=== PATIENT | female | born 1950 | race Caucasian/White ===

== ENCOUNTER 2022-03-22 09:01 | Outpatient (CLI) | payer OTHER, SELFPAY ==
--- OUTSIDE RECORDS SUMMARY | 2022-03-22 09:05 | XMS_ITS | Clinical Summary ---
:1950 Author Organization [employer] [facility] [place] [address] Care Team Providers Name Role Phone Wilmer Duval MD Primary Care Provider Allergies No known active allergies Medications Medication Sig Dispensed Refills Start Date End Date Status potassium 1 tablet 5 75 tablet. 3 07/12/2021 Active chloride days per (KLOR-CON M20) 20 week. mEq Extended-Release tabletIndications : Localized edema furosemide TAKE 1 TABLET 60 Tablet 11 07/30/2021 Acti ve (LASIX) 20 mg BY MOUTH tabletIndications TWICE DAILY : Edema, unspecified type celecoxib Take 1 60 Capsule 0 03/07/2022 Active (CELEBREX) 200 mg Capsule (200 capsuleIndication mg) by mouth s: Hip pain, left 2 times daily if needed for Pain. celecoxib Take 1 30 Capsule 1 02/09/2022 Disconti nued (CELEBREX) 200 mg Capsule (200 2 (Reorder capsuleIndication mg) by mouth (E-cancel not s: Hip pain, left 2 times daily sent)) if needed for Pain. As needed. Active Problems Problem Noted Date Edema of both legs 10/24/2012 Overview: Chronically worse on right leg. Resolved Problems Problem Noted Date Resolved Date Venous stasis ulcer of right lower leg with edema of right 0 12/06/2019 02/14/2022 lower leg Encounters Date Type Specialty Care Team Description 03/22/2022 Travel 03/18/2022 Travel 03/11/2022 Telephone Wilmer Duval Prior Authori deena Clifton MD (celecoxib (OBINNA EBREX) 200 mg capsule Appr steven 02/09/22-) 03/07/2022 Refill Wilmer Duval Refill Reques t (Celecoxib) MD Etienne 02/21/2022 Telephone Arvind Tomlinson Appointment MD Wilmer 02/14/2022 Office Visit Wilmer Duval Leg Pain/prob bernard (Left leg MD Etienne pain, groin are a x a couple of weeks .); Knee Pain/problem (F rom walking funny with left leg is having some kne e pain also.) 02/14/2022 Travel 02/11/2022 Travel 01/31/2022 Ancillary Procedure 01/31/2022 Office Visit Wilmer Duval Leg Pain/prob bernard (Left leg MD Etienne and hip pain x a couple of weeks.) 01/31/2022 Travel 01/28/2022 Travel 12/30/2021 Orders Only Lab, Crlb Lab from Last 3 Months Immunizations Name Administration Dates Next Due Influenza, IIV3 (Age >=3 years) 02/28/2012 Tdap 11/01/2007 Family History Medical History Relation Name Comments Hypertension Brother Blood Disease Father Hypertension Father Relation Name Status Comments Brother Father Mother Social History Tobacco Use Types Packs/Day Years Used Date Never Smoker Smokeless Tobacco: Never Used Tobacco Cessation: Counseling Given: Yes Alcohol Use Standard Drinks/Week Comments Not Currently 0 (1 standard drink = 0.6 oz pure alcoho l) 1-2 times per month Alcohol Habits Answer Date Recorded How often do you have a drink containing alcohol? 2-4 times a month 06/15/2020 How many drinks containing alcohol do you have on a 1 or 2 11/26/2019 typical day when you are drinking? How often do you have six or more drinks on one Not asked occasion? 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 Obstetrics History Last Filed Vital Signs Vital Sign Reading Time Taken Comments Blood Pressure 156/83 02/14/2022 3:15 PM CDT Pulse 86 02/14/2022 3:15 PM CDT Temperature 36.6 ??C (97.9 ??F) 08/13/2021 1:05 PM CDT Respiratory Rate - - Oxygen Saturation 99% 02/14/2022 3:15 PM CDT Inhaled Oxygen Concentration - - Weight 106.9 kg (235 lb 11.2 oz) 02/14/2022 3:15 PM CDT Height 166 cm (5' 5.35) 02/14/2022 3:15 PM CDT Body Mass Index 38.8 02/14/2022 3:15 PM CDT Plan of Treatment Upcoming Encounters Date Type Specialty Care Team Description 03/22/2022 Office Visit Arvind Tomlinson MD Arrived [address] [facility] dim[address] [place] [address] (Wo rk) Health Maintenance Due Date Last Done Comments COVID-19 vaccine series (#1) 1950 Zoster (shingles) series for age 0306/26/1998 50+ (1 of 2) DEXA/DXA scan for age 65+ 2013 Pneumococcal series for age 65+ (1 2013 - PCV) Tetanus booster 10/31/2017 11/01/2007 Influenza for age 65+ 12/23/2021 02/28/2012 Depression screening for age 12+ 02/03/2022 02/03/2021, , 02/07/2018, Additional history exists Lipids for age 45-75 02/15/2022 02/15/2017 Mammogram for age 45-75 10/04/2022 10/04/2021 Fecal testing non-DNA 12/30/2022 12/30/2021, 02/26/2020 (FIT,FOBT,iFOBT) for age 45-75 BMI (ht and wt on same day) for 02/14/2023 02/14/2022, 01/22, age 18+ 02/03/2021, Additional history exists Tdap Completed 11/01/2007 Hepatitis C screening for age Completed 12/06/2019 18-79 Procedures Procedure Name Priority Date/Time Associated Diagnosis Comme nts XR HIP 1 VIEW W Routine 01/31/2022 4:31 PM Hip pain, left Resu lts for this PELVIS BILAT CDT procedure are i n the results section. OCCULT BLOOD IFOBT Routine 12/30/2021 4:21 PM Screening for Re sults for this STOOL CDT colorectal cancer procedure are in the results section. from Last 3 Months Results XR HIP 1 VIEW W PELVIS BILAT (01/31/2022 4:31 PM CDT) Anatomical Region Laterality Modality HIPS, HIPL, HIPR, Pelvis Computed Radiog alyssa Specimen (Source) Anatomical Collection Method Collection Time Re ceived Time Location / / Volume Laterality 02/01/2022 1:19 PM CDT Narrative 02/01/2022 1:19 PM CDT For Patients: ??As a result of the Cures Act, medical imaging exams and procedure report s are released immediately into your [employer] medical record. ??You may view this report before your referring provider. ??If you have questions, please contact your health care provider. Indication: Hip pain Technique: Pelvis and both hips 3 views Comparison: None Findings: Mild spurring present at the right hip. Moderate narrowing and spurring left hip. No fracture. Mild spurring at the symphysis pubis and both sacroiliac joints. Degenerative disc disease on the right at L4-5. Impression: Moderate degenerative joint disease left hip. Mild degenerative joint disease right hip. Dictated by Dav Watson MD @ Feb 01 ??1:19PM (Electronically Signed) ?? Procedure Note Dav Watson MD - 02/01/2022For matting of this note might be different from the original. For Patients: As a result of the Cures Act, medical imaging exams and procedure reports are released immediately into your electronic medical record. You may view this report before your referring provider. If you have questions, please contact [facility] health care provider. Indication: Hip pain Technique: Pelvis and both hips 3 views Comparison: None Findings: Mild spurring present at the right hip. Moderate narrowing and spurring left hip. No fracture. Mild spurring at the symphysis pubis and both sacroiliac joints. Degenerative disc disease on the right at L4-5. Impression: Moderate degenerative joint disease left hip. Mild degenerative joint disease right hip. Dictated by Dav Watson MD @ Feb 01 1:19PM (Electronically Signed) Wilmer Duval MD GENERAL IMAGING OCCULT BLOOD IFOBT STOOL (12/30/2021 4:21 PM CDT) P athologist Signature STOOL BLOOD Negative Negative 12/31/2021 Nitrous.IO ,IFOBT 10:55 AM CDT [facility] Specimen Anatomical Collection Method Collection Time Receive d Time (Source) Location / / Volume Laterality Stool STOOL SPECIMEN / Non-Blood / 12/30/2021 4:21 PM 12/30 4:21 Unknown Unknown CDT PM CDT Wilmer Duval MD LABORATORY Performing Organization Address City/State/ZIP Code Phon e Number [facility] [address] [place], [place] [phone] CLINIC from Last 3 Months Insurance Payer Benefit Plan / Subscriber ID Effective Dates Phone Addre ss Type Group MEDICA MEDICA CHOICE [id number] 2019-Present [address] [address] [place] [address] Care Teams Plant Assigner Relationship Specialty Start Date End Date Wilmer Duval MD PCP - General Family Practice 11/16/11 [address] [place] [address]
== END 2022-03-22 09:02 | disposition home or self-care (01) ==
LOC: INJ CL 09:03
PROVIDERS: PCP Family Medicine; Visit Provider Family Medicine
DX: M16.12 Unilateral primary osteoarthritis, left hip (principal); M25.552 Pain in left hip
CPT/HCPCS: 20610; 77002; J0702; Q9966

== ENCOUNTER 2022-06-28 08:04 | Outpatient (CLI) | payer OTHER, SELFPAY | END 2022-06-28 08:05 | disposition home or self-care (01) | LOC: INJ CL 08:07 | PROVIDERS: PCP Family Medicine; Visit Provider Family Medicine | DX: M16.12 Unilateral primary osteoarthritis, left hip (principal); M25.552 Pain in left hip | CPT/HCPCS: 20610; 77002; J0702; Q9966 ==

== ENCOUNTER 2022-09-29 15:41 | Outpatient (RCR) | payer OTHER, SELFPAY | END 2022-12-22 10:32 | disposition home or self-care (01) | PROVIDERS: PCP Family Medicine; Visit Provider Orthopaedic Surgery Sports Medicine | DX: M16.12 Unilateral primary osteoarthritis, left hip (principal); Z96.642 Presence of left artificial hip joint; M25.552 Pain in left hip; M25.652 Stiffness of left hip, not elsewhere classified; Z74.09 Other reduced mobility; Z51.89 Encounter for other specified aftercare | CPT/HCPCS: 97161; 97535 ==

== ENCOUNTER 2022-10-01 11:45 | Outpatient (REF) | payer OTHER, SELFPAY | END 2022-10-01 11:46 | disposition home or self-care (01) | LOC: LAB 11:45 | PROVIDERS: PCP Family Medicine; Visit Provider Orthopaedic Surgery Sports Medicine | DX: Z01.818 Encounter for other preprocedural examination (principal) | CPT/HCPCS: 36415; 86850; 86900; 86901 ==

== ENCOUNTER 2022-10-03 07:48 | Day surgery (SDC) | payer OTHER, SELFPAY ==
[2022-10-03] VITALS (29 sets, daily range): BP systolic 101–160; BP diastolic 55–94; PULSE 50–83; RESP 12–16; TEMP 35.5–36.7; O2SAT 93–100; BMI 38.7; BMI 39.0
[2022-10-03] MEDS: ACETAMINOPHEN 500 MG TABLET 1000 MG PO ×3 (08:33→23:29)
[2022-10-03] MEDS: OXYCODONE (CR) 10 MG TAB.ER.12H PO (08:34)
[2022-10-03] MEDS: CELECOXIB 200 MG CAPSULE PO ×2 (08:34→20:38)
--- NOTE | 2022-10-03 08:36 | CRLHL7_ITS ---
For Patients: As a result of the Cures Act, medical imaging exams and procedure reports are released immediately into your electronic medical record. You may view this report before your referring provider. If you have questions, please contact your health care provider. Indication: Postop Technique: AP hip center pelvis and lateral view left hip Findings/Impression: Hardware from a left total hip arthroplasty is in satisfactory position. Bone alignment is normal. No sign of acute fracture. Postop changes are within normal limits. Dictated by Dav Watson MD @ 10/04/2022 10:40:05 AM (Electronically Signed)
[2022-10-03] MEDS: LACTATED RINGERS 1000 ML 1,000 ML 100 ML IV ×2 (09:10→11:57)
[2022-10-03] MEDS: SODIUM CHLORIDE 0.9 % (FLUSH) 10 ML SYRINGE IVF (09:10)
[2022-10-03] MEDS: MIDAZOLAM HCL 1 MG/ML inj IVP (09:45)
[2022-10-03] MEDS: fentaNYL 100 MCG/2 ML inj IVP (09:45)
--- NOTE | 2022-10-03 09:52 | W.ANESCHARGE ---
Anesthesia Charges Start Date/Time Anesthesia Start Date: 10/03/22 Anesthesia Start Time: 10:40 Stop Date/Time Anesthesia Stop Date: 10/03/22 Anesthesia Stop Time: 13:41 Summary Extremes of Age - Over 70 or under 1: MDA
--- NOTE | 2022-10-03 09:52 | P.NB_ITS ---
Nerve Block Nerve Block Time Seen by Provider: 09:49 Date Seen: 10/03/22 Type of block requested by surgeon for post-operative analgesia: JULIÁN/LFCN Side: left Time out performed: Yes Verification of patient name: Yes Verification of date of : Yes Site marking: site marked Name of person performing procedure: Rell Continuous monitoring Was continuous monitoring of O2 sat, B/P, quality assurance monitor chassis, recorded every 15 minutes?: Yes Procedure Checklist: sterile prep, needles and gloves Ultrasound guided. Images saved: Yes Medications given in 5ml increments after negative aspiration: Ropivicaine %: 0.5 mL: 30 Needle gauge: 20 Decadron (mg): 10 Precedex (mcg): 25 Patient tolerated procedure well: Yes Additional comments: Needle noted below psoas tendon needle noted adjacent to LFCN Block Charges Block Charge (with Pro Fee): Other Periph Nerve Block Use of Ultrasound Machine for Block: Yes- US Guidance/pain block
--- NOTE | 2022-10-03 09:58 | SUR.PREOP ---
TIME?OUT:?0944 PT/RN/MDA?VERIFICATION?OF?SURGICAL?SITE,?PROCEDURE,?AND?CONSENT OBTAINED?PRIOR?TO?INVASIVE?PROCEDURE.
--- NOTE | 2022-10-03 10:00 | CRLHL7_ITS ---
For Patients: As a result of the Cures Act, medical imaging exams and procedure reports are released immediately into your electronic medical record. You may view this report before your referring provider. If you have questions, please contact your health care provider. Indication: Hip replacement surgery Technique: AP hip fluoroscopic image. Fluoroscopy time 30.1 seconds. Findings/Impression: Hardware from a left total hip arthroplasty is in satisfactory position. Dictated by Dav Watson MD @ 10/03/2022 12:42:46 PM (Electronically Signed)
[2022-10-03] MEDS: TRANEXAMIC ACID 100 MG/ML INJ 1000 MG IV (10:50)
[2022-10-03] MEDS: CEFAZOLIN 2 GM in 0.9 % SODIUM CHLORIDE Mini-bag 100 ML IVPB ×2 (11:00→17:23)
--- NOTE | 2022-10-03 12:36 | P.ORPRC_ITS ---
Procedure Note Date of procedure: 10/03/22 Procedure: PREOPERATIVE DIAGNOSIS: 1. Left hip osteoarthritis, severe, primary POSTOPERATIVE DIAGNOSIS: 1. Left hip osteoarthritis, severe, primary PROCEDURE: 1. Left total hip arthroplasty-anterior approach 2. [address]1222 - intraoperative fluoroscopy up to 1 hour. SURGEON: Chintan Lechuga MD. FIRE PROTECTION ENGINEER: Kevin Franco PA-C; Genesis Gomez PA-C - Of note, a skilled clinical lab assistant was critical for this case to aid in patient positioning, tissue retraction, limb manipulation/positioning, dislocation/relocation, patient safety, and closure. ANESTHESIA: Spinal anesthetic EBL: 300 mL IMPLANTS: DePuy J&J uncemented total hip Eden cup size 48, hole eliminator, +4 neutral liner Actis stem, standard offset, size 7 +9 mm ceramic 32mm head. COMPLICATIONS: None evident INDICATIONS: The patient is a pleasant 72-year-old female who has experienced severe left hip pain and difficulty bearing weight. Workup included x-rays which revealed severe osteoarthrosis in the hip. Given the deformity, the dysfunction, and the pain, as well as the failure of nonoperative management, recommendation was made for surgery. FINDINGS: Moderate effusion upon entering the joint. Full-thickness chondral loss broadly to the femoral head. Osteophytes off the femoral head/neck junction and acetabulum anteriorly and laterally DESCRIPTION OF PROCEDURE: Following a thorough discussion of risks, benefits, and alternatives consent was obtained and the left hip was marked. The patient was brought to the operating room and placed supine on the operating table. Induction of anesthesia was undertaken. 2 g IV Ancef and 1 g tranexamic acid was administered within 1 hr of incision preoperatively. Proper time-out was performed identifying proper patient, site, procedure. The operative extremity was prepped and draped in the appropriate sterile fashion using ChloraPrep after the patient was positioned on the [place] table with head in neutral alignment and all bony prominences well padded. C-arm fluoroscopic imaging was utilized to confirm proper pelvis rotation and position, and to get true AP films of both the contralateral left, and the affected left hip. This is for comparison. A longitudinal incision was made starting approximately 1 cm distal to the ASIS, and 3-4 cm lateral. The incision was extended distally aiming toward the lateral border the patella. Sharp incision through skin and bovie cautery through the subcutaneous tissue allowed identification of the TFL fascia. This was sharply divided, and the fascia bluntly released from the muscle fibers as we dissected medial. Upon coming to the medial border, we were able to retract the TFL laterally, and penetrated the deeper fascia and identify the crossing circumflex vessels. These were ligated/cauterized. The rectus was elevated from the capsule, and retractors placed laterally and medially along the femoral neck to help with visualization of the capsule. We then performed an inverted T capsulotomy. The capsule was tagged for later repair. Retractors were placed inside the capsule. The femoral neck was visualized after releasing medially down to the lesser trochanter, along the saddle laterally, and up onto the acetabulum. The femoral neck cut was made in line with our preoperative templating. The head was removed in a single piece, and sized. We turned our attention to acetabular preparation. Initially, the labrum was resected from around the perimeter, the pulvinar was excised, allowing us to visualize the false wall. We started the reaming with a 43 mm reamer. This was medialized down to the true wall. We then enlarged our reamers sequentially up to one size less than the selected cup size. We trialed at the same size and found it to have an excellent fit. The selected cup was then opened, inserted, and impacted in line with the goal of 40-45? of abduction, and 20-25? of anteversion. This was confirmed on C-arm fluoroscopic imaging to be in the appropriate/goal position. Once the cup was placed we placed a hole eliminator and a liner consistent with preop planning. Attention was turned to the femoral preparation. The limb was extended, externally rotated, and adducted. The posteromedial capsule was released, as retractors were placed allowing excellent access to the proximal femur. Initially a box repairer was followed by canal finder followed by various broaches. We broached sequentially up to size noted above, found it to have excellent rotational control, and trialing various heads and necks, revealed that appropriate neck offset, and the above noted head size provided the greatest stability, and tenriism of length, and offset. C-arm fluoroscopic imaging confirmed position of the stem, as well as leg lengths, which were compared with the pre procedure all fluoroscopic images. Trial implants were removed, the real femoral stem inserted, as was the ceramic head. After reducing, the leg was placed through range of motion and stability was confirmed anterior, posterior, and lateral. A 3 min Betadine soak was then performed, and thorough irrigation with normal saline followed. Closure of the capsule was performed with #1 PDS. Bleeding was confirmed to be controlled at this stage, and the TFL fascia was closed with #0 strata fix. Subcutaneous, and subcuticular closure was performed with 2-0 Vicryl and 4-0 Monocryl, respectively. Dressings were applied, and the patient was awoken from anesthesia and transferred the PACU in stable condition. A skilled clinical lab assistant was critical for this case to aid in patient positioning, tissue retraction, proximal femur exposure, limb manipulation/positioning, dislocation/relocation, patient safety, and closure. PLAN: 1. Weight bear as tolerated operative extremity. 2. 23 hr perioperative antibiotics. 3. Ice. 4. PT/OT consults for ambulation assistance/mobility education. 5. Social work consult for discharge planning. 6. DVT prophylaxis with at SCDs, Parag Blancae, and Xarelto x5 days followed by aspirin for a total of 1 month.
--- NOTE | 2022-10-03 13:38 | W.ANESCHARGE ---
Anesthesia Charges Start Date/Time Anesthesia Start Date: 10/03/22 Anesthesia Start Time: 10:40 Stop Date/Time Anesthesia Stop Date: 10/03/22 Anesthesia Stop Time: 13:41
[2022-10-03] MEDS: fentaNYL 100 MCG/2 ML inj 50 MCG IVP ×2 (13:52→14:17)
[2022-10-03] MEDS: ONDANSETRON 2 MG/ML inj 4 MG IVP (14:00)
[2022-10-03] MEDS: HYDROmorphone 0.5 mg/0.5 ml inj IVP ×2 (14:06→19:56)
--- NOTE | 2022-10-03 15:26 | PM.IMCN1 ---
Date of Consult Consult date: 10/03/22 Primary Care Provider: Wilmer Duval MD Consult Narrative Reason for consult: Medical management of comorbidities Narrative: Nicky Garrido is a 72 year old female who presented to the hospital today for an elective L BOBBI. There were no surgical or anesthetic complications noted during procedure. Patient's H&P reviewed, PCP is Dr. Duval at [facility]. Past medical history significant for: Osteoarthritis History of blood clots: No. Postoperative plan: Home with friends to assist (lives in an apartment locally). 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 She is a nonsmoker. Review of Systems Status of ROS: Reports: 10 or more systems reviewed and unremarkable except as noted in History and below PFSH PFS Medical History (Updated 08/30/22 @ 14:56 by Ann Tobar) Osteoarthritis of right shoulder ?M19.011 - Primary osteoarthritis, right shoulder (ICD-10) Surgical History (Updated 10/03/22 @ 15:30 by Janae Berman MD) Status post left hip replacement ?Z96.642 - Presence of left artificial hip joint (ICD-10) History of left oophorectomy ?Z90.721 - Acquired absence of ovaries, unilateral (ICD-10) Family History (Updated 09/20/22 @ 15:01 by Dunia Thao RN) Mother Degenerative disc disease Brother Diabetes Social History (Updated 08/30/22 @ 14:48 by Amber Steele ~ [facility], [facility]) Smoking Status: Never smoker Do you use any of these nicotine containing products: None Second hand tobacco smoke exposure: No How often do you have a drink containing alcohol: 2-4 times a month Alcohol type: wine How many standard drinks containing alcohol do you have on a typical day: 1 or 2 How often do you have six or more drinks on one occasion: Never AUDIT-C Alcohol total score: 2 Non-prescribed substance use: denies use Caffeine: Yes (coffee, 1 cup/day) service: No Meds Home Medications and Allergies Home Medications Medication Instructions Recorded Confirmed Type furosemide 20 mg tablet 20 mg PO BID 08/30/22 10/03/22 History cholecalciferol (vitamin D3) 25 25 mcg PO DAILY 10/03/22 10/03/22 History mcg (1,000 unit) capsule glucosamine 375 ee-hofhtkpdj-cye 1 tab PO DAILY 10/03/22 10/03/22 History no1 500 mg-C 15 mg-bárbara 0.5 mg tablet (Ukfxkmnowve-Dketdecwtqj-BYW Complex) methylcellulose (laxative) 500 mg 500 mg PO DAILY 10/03/22 10/03/22 History tablet (Fiber Therapy (methylcellulose)) omega 2-mgz-vpm-fish oil 1,000 mg 1 cap PO DAILY 10/03/22 10/03/22 History (120 mg-180 mg) capsule (Fish Oil) potassium chloride 20 mEq 20 meq PO 5XW 10/03/22 10/03/22 History tablet,extended release(part/cryst) vit C 250 mg-vit E 90 mg-zinc 40 1 tab PO DAILY 10/03/22 10/03/22 History mg-copper 1 lo-ioqgyg-kkoivm capsule (PreserVision AREDS-2) Allergies Allergy/AdvReac Type Severity Reaction Status Date / Time No Known Drug Allergies Allergy Verified 10/03/22 08:19 Exam Narrative: Exam Narrative: GEN: Alert and answering questions appropriately HEENT: EOMIs bilaterally, no scleral icterus CV: RRR, soft systolic murmur heard best at left sternal border without radiation or concerning features R: LCTA bilaterally without concerning wheezing, rales, or rhonchi Ext: Parag hose on bilateral lower extremities Skin: No concerning skin lesions or rashes on exposed skin Neuro: Nonfocal Psych: Appropriate Const: Vital Signs, click to edit/add: Vital Signs - 24 hr 10/03/22 08:31 10/03/22 09:45 10/03/22 09:50 Temperature 98.1 F Pulse Rate 73 75 75 Respiratory Rate 16 16 16 Blood Pressure 151/88 H 160/69 H 131/65 Pulse Oximetry 99 99 94 Oxygen Delivery Me thod Room Air Nasal Cannula Nasal Cannula Oxygen Flow Rate 2 2 10/03/22 10:00 10/03/22 10:15 10/03/22 10:30 Temperature Pulse Rate 63 73 70 Respiratory Rate 16 16 16 Blood Pressure 108/55 L 101/60 108/55 L Pulse Oximetry 96 97 96 Oxygen Delivery Me thod Nasal Cannula Nasal Cannula Nasal Cannula Oxygen Flow Rate 2 2 2 10/03/22 13:37 10/03/22 13:40 10/03/22 13:45 Temperature 96.9 F L Pulse Rate 83 75 81 Respiratory Rate 12 14 16 Blood Pressure 136/83 141/80 H 140/77 H Pulse Oximetry 95 93 95 Oxygen Delivery Me thod Nasal Cannula Oxygen Flow Rate 2 10/03/22 13:50 10/03/22 13:55 10/03/22 14:00 Temperature Pulse Rate 75 71 75 Respiratory Rate 14 16 16 Blood Pressure 141/76 H 151/67 H 113/91 H Pulse Oximetry 97 96 98 Oxygen Delivery Me thod Oxygen Flow Rate 10/03/22 14:05 10/03/22 14:10 10/03/22 14:15 Temperature Pulse Rate 76 71 71 Respiratory Rate 14 16 16 Blood Pressure 139/84 142/65 H 143/73 H Pulse Oximetry 100 99 99 Oxygen Delivery Me thod Oxygen Flow Rate 10/03/22 14:20 10/03/22 14:25 10/03/22 14:30 Temperature Pulse Rate 64 57 L 52 L Respiratory Rate 16 16 16 Blood Pressure 133/60 139/76 148/67 H Pulse Oximetry 100 99 94 Oxygen Delivery Me thod Room Air Oxygen Flow Rate 10/03/22 14:35 10/03/22 14:40 Temperature 96.9 F L Pulse Rate 64 67 Respiratory Rate 14 14 Blood Pressure 126/77 130/77 Pulse Oximetry 98 97 Oxygen Delivery Me thod Oxygen Flow Rate Assessment and Plan Assessment and plan (1) Status post left hip replacement: Problem comment: - 10/03/22Alexandrea Status: Acute Plan - pain management and prophylaxis per Orthopedic Surgery team - anticipate routine postoperative course
[2022-10-03] MEDS: LACTATED RINGERS 1000 ML 1,000 ML 75 ML IV (15:32)
[2022-10-03] MEDS: hydrOXYzine pamoate 25 MG CAPSULE PO (17:22)
--- NOTE | 2022-10-03 19:56 | PC.NURSE ---
[id number] Shift Summary? [address] 72 Total Left Hip? Hx: Obesity, Osteoarthritis of right shoulder, left oophorectomy? Pt arrived to floor around 1450, very drowsy and some nauseous.?Still on post op vitals. Bradypnea upon arrival but improving with alertness. On room air and BPs in 160s. Dressing to L lateral thigh is CDI with ice packs on top. Advanced diet to regular for dinner, tolerating well. Has no voided yet. Has little movement and feeling to L leg. Needs encouragement to participate in cares. Pain 7/10 given Tylenol and Atarax- hesitant to take narcotics. SCDs/TEDs in place. 1 of 2 IV abx given. LR Running @ 75mL/hr, can DC once adequate I/Os. Oriented x 4. Walker in room.?
[2022-10-03] MEDS: SENNOSIDES 1 TAB TABLET 2 TAB PO (20:36)
[2022-10-04] MEDS: OXYCODONE 5 MG TABLET PO ×5 (00:11→11:23)
[2022-10-04] MEDS: CEFAZOLIN 2 GM in 0.9 % SODIUM CHLORIDE Mini-bag 100 ML IVPB (01:31)
[2022-10-04 03:00] VITALS: BP 144/73; PULSE 86; RESP 16; TEMP 36.4; O2SAT 98
[2022-10-04] MEDS: ACETAMINOPHEN 500 MG TABLET 1000 MG PO ×2 (04:47→11:22)
--- NOTE | 2022-10-04 05:55 | PC.NURSE ---
Patient alert and oriented. Pain to left hip well managed with current PRN oxycodone, use of ice pack and scheduled tylenol. Dressing to left hip/groin is clean, dry and intact. CMS to left lower extremity intact. [facility] and walker. IV to left hand accidently removed by patient while she was sleeping, catheter tip intact. Bowel sounds active x 4 quadrants, appetite good, patient advanced to regular diet. Denies any nausea or vomiting. Patient would like to speak to PT regarding standard walker as she has a four wheeled walker at home and is concerned with using it.
[2022-10-04 06:35] LABS: Hematocrit 36.4 % (33.0-51.0); Hemoglobin* 11.7 gm/dL (12.0-16.0); Immature Granulocytes Pct Auto 0.4 %; Lymphocytes Percent Auto 7.8 % (20-44); Mean Corpuscular HGB Conc 32 gm/dL (32-36); Mean Corpuscular Hemoglobin 31 pg (26-34); Mean Corpuscular Volume 97 fL (80-100); Monocytes Percent Auto 7.8 % (0.0-11.0); Platelet Count* 313 K/uL (140-440); RDW Coefficient of Variation % 13.8 % (11.5-15.5); Red Blood Count 3.74 m/uL (4.00-5.20); White Blood Count* 11.34 K/uL (4.50-11.00)
[2022-10-04 06:37] LABS: Slide Review Reflex No
[2022-10-04 06:56] LABS: Potassium* 4.6 mmol/L (3.6-5.1); Sodium* 136 mmol/L (135-149)
[2022-10-04 06:59] LABS: Creatinine* 0.7 mg/dL (0.5-1.5); Est. Creatinine Clearance* 42.62; Estimated Glomerular Filt Rate 91 ml/min
[2022-10-04 07:00] VITALS: BP 130/63; PULSE 105; RESP 16; TEMP 37.2; O2SAT 98
[2022-10-04 07:00] LABS: Blood Urea Nitrogen* 16 mg/dL (7-30)
--- NOTE | 2022-10-04 08:08 | PM.ORPN ---
Subjective Subjective Date Seen: 10/04/22 Principal diagnosis: Status postop day 1, left total hip arthroplasty - anterior approach Interval history: Patient reports doing well. No acute events over night. Pain mild-moderate, managed with scheduled and PRN medications, ice. DVT prophylaxis: Rivaroxaban, bilateral knee high Parag stockings, SCDs, walking. Denies fevers, chills, aches, N/V, CP, SOB/ESTRADA, or lightheadedness. Ortho Exam Narrative Exam Narrative: -Patient appears comfortable in recliner; no apparent acute distress -Alert and oriented times 3 -Operative hip swollen; soft tissues supple; no obvious erythema. Ecchymosis minimal. Warmth appropriate -Surgical dressing clean, dry, intact; no obvious drainage, no erythematous streaking peripheral to the bandage -Bilateral calves soft and supple; no significant swelling, edema, tenderness, erythema, discoloration, warmth, or palpable cords -2+ DP/PT pulses, intact dermatomes and myotomes distally (5/5 strength). No numbness about the lateral femoral cutaneous nerve distribution. -incentive spirometer was still in its bag, not opened on window sill Const Vital Signs, click to edit/add: Vital Signs - 24 hr 10/03/22 08:31 10/03/22 09:45 10/03/22 09:50 Temperature 98.1 F Pulse Rate 73 75 75 Pulse Rate [Left Pulse Oximeter] Respiratory Rate 16 16 16 Blood Pressure 151/88 H 160/69 H 131/65 Blood Pressure [Right Arm] Pulse Oximetry 99 99 94 Oxygen Delivery Method Room Air Nasal Cannula Nasal Cannula Oxygen Flow Rate 2 2 10/03/22 10:00 10/03/22 10:15 10/03/22 10:30 Temperature Pulse Rate 63 73 70 Pulse Rate [Left Pulse Oximeter] Respiratory Rate 16 16 16 Blood Pressure 108/55 L 101/60 108/55 L Blood Pressure [Right Arm] Pulse Oximetry 96 97 96 Oxygen Delivery Method Nasal Cannula Nasal Cannula Nasal Cannula Oxygen Flow Rate 2 2 2 10/03/22 13:37 10/03/22 13:40 10/03/22 13:45 Temperature 96.9 F L Pulse Rate 83 75 81 Pulse Rate [Left Pulse Oximeter] Respiratory Rate 12 14 16 Blood Pressure 136/83 141/80 H 140/77 H Blood Pressure [Right Arm] Pulse Oximetry 95 93 95 Oxygen Delivery Method Nasal Cannula Oxygen Flow Rate 2 10/03/22 13:50 10/03/22 13:55 10/03/22 14:00 Temperature Pulse Rate 75 71 75 Pulse Rate [Left Pulse Oximeter] Respiratory Rate 14 16 16 Blood Pressure 141/76 H 151/67 H 113/91 H Blood Pressure [Right Arm] Pulse Oximetry 97 96 98 Oxygen Delivery Method Oxygen Flow Rate 10/03/22 14:05 10/03/22 14:10 10/03/22 14:15 Temperature Pulse Rate 76 71 71 Pulse Rate [Left Pulse Oximeter] Respiratory Rate 14 16 16 Blood Pressure 139/84 142/65 H 143/73 H Blood Pressure [Right Arm] Pulse Oximetry 100 99 99 Oxygen Delivery Method Oxygen Flow Rate 10/03/22 14:20 10/03/22 14:25 10/03/22 14:30 Temperature Pulse Rate 64 57 L 52 L Pulse Rate [Left Pulse Oximeter] Respiratory Rate 16 16 16 Blood Pressure 133/60 139/76 148/67 H Blood Pressure [Right Arm] Pulse Oximetry 100 99 94 Oxygen Delivery Method Room Air Oxygen Flow Rate 10/03/22 14:35 10/03/22 14:40 10/03/22 14:53 Temperature 96.9 F L 96 F L Pulse Rate 64 67 63 Pulse Rate [Left Pulse Oximeter] Respiratory Rate 14 14 12 Blood Pressure 126/77 130/77 138/64 Blood Pressure [Right Arm] Pulse Oximetry 98 97 94 Oxygen Delivery Method Nasal Cannula Oxygen Flow Rate 2 10/03/22 14:54 10/03/22 15:00 10/03/22 15:15 Temperature 96.0 F L 96.1 F L Pulse Rate 63 50 L Pulse Rate [Left Pulse Oximeter] 63 Respiratory Rate 12 12 12 Blood Pressure 148/72 H 144/66 H Blood Pressure [Right Arm] 138/64 Pulse Oximetry 94 93 96 Oxygen Delivery Method Nasal Cannula Nasal Cannula Nasal Cannula Oxygen Flow Rate 2 2 2 10/03/22 15:30 10/03/22 15:45 10/03/22 16:17 Temperature 96.1 F L Pulse Rate 66 55 L Pulse Rate [Left Pulse Oximeter] Respiratory Rate 12 12 16 Blood Pressure 146/67 H 160/89 H Blood Pressure [Right Arm] 159/94 H Pulse Oximetry 97 100 100 Oxygen Delivery Method Nasal Cannula Nasal Cannula Room Air Oxygen Flow Rate 1 1 10/03/22 18:32 10/03/22 23:00 10/04/22 03:00 Temperature 97.4 F L 97.5 F L Pulse Rate Pulse Rate [Left Pulse Oximeter] 81 86 Respiratory Rate 16 16 16 Blood Pressure Blood Pressure [Right Arm] 143/78 H 144/73 H Pulse Oximetry 98 98 98 Oxygen Delivery Method Room Air Room Air Room Air Oxygen Flow Rate Assessment and Plan Assessment and plan (1) Status post left hip replacement: Problem details: - 10/03/22Alexandrea Status: Acute Plan - Complete 23 hour perioperative antibiotics. - PT/OT consult for education and assistance. - Social work consult for discharge planning - Prescribed analgesics as needed - DVT prophylaxis: Rivaroxaban, bilateral knee high Parag Hose stockings and SCDs - Anticipation is for discharge to home with friend 10/04/2022 if the patient remains medically stable, pain is controlled, and they are safe with mobilization. - We worked on incentive spirometry; she had two good coughing spells post inspiratory session
[2022-10-04] MEDS: SENNOSIDES 1 TAB TABLET 2 TAB PO (08:39)
[2022-10-04] MEDS: CELECOXIB 200 MG CAPSULE PO (08:40)
[2022-10-04 11:00] VITALS: BP 139/81; PULSE 99; RESP 18; O2SAT 99
--- NOTE | 2022-10-04 13:30 | PC.NURSE ---
Nursing Care Hours: [id number] Pt this shift calm and cooperative, alert and oriented. Eating and drinking sufficiently, denies nausea. Pain rated 4/10 prior to PT, 8/10 afterwards. Pain treated before and after per eMAR. CMS intact, dressing CDI. Ice applied. SB assist with walker and gait belt. LS clear. No IV access. Pt friend here for teaching and discharge instructions. All questions and concerns addressed. Wheeled out to friends vehicle in stable condition.
== END 2022-10-04 11:30 | disposition home or self-care (01) ==
LOC: OR 07:49 → MEDSURG 14:14
PROVIDERS: PCP Family Medicine; Visit Provider Orthopaedic Surgery Sports Medicine
PROC: (CPT 27130; principal; 2022-10-03 10:00)
DX: M16.12 Unilateral primary osteoarthritis, left hip (principal); G89.18 Other acute postprocedural pain
CPT/HCPCS: 27130; 01214; 36415; 64450; 73501; 76000; 76942; 82565; 84132; 84295; 84520; 85025; 97110; 97116; 97161; 97165; 97530; 99100; A9270; C1776; J0330; J0690; J1100; J1170; J2250; J2405; J2704; J2795; J3010; J3490; J7120